=== PATIENT | male | born 1935 | race Caucasian/White ===

== ENCOUNTER 2020-04-06 08:27 | Emergency (ER) | payer MEDICARE, OTHER ==
[~2020-04-06 08:27] MED LIST: ADVAIR 250-501 EACH INH; ANUSOL HC SUPP1 SUPP PR; ASPIRIN CHEWABL81 MG PO; AVODART 0.5 MG0.5 MG PO; AZELASTINE137 MCG/0.; BUSPAR 10MG10 MG PO; CEFUROXIME500 MG PO; CLARITIN10 M2 PO; COZAAR 25MG TAB25 MG PO; DESYREL 50 MG T50 MG PO; ELIQUIS2.5 MG PO; FLOMAX 0.4 MG0.4 MG PO; FLONASE 0.05% N16 GM; GLUCOPHAGE 500500 MG PO; IPRATROPIU0.2 MG/1 M INH; LASIX TAB 20 MG20 MG PO; LEVALBUTER1.25 MG/3 NEB; LEVOFLOXACIN500 MG PO; LIPITOR TAB 2020 MG PO; LOPRESSOR 25 MG25 MG PO; MEGACE 400400 MG/10 PO; MELATONIN5 MG PO; METAMUCIL PACK3.4 GM PO; MIRALAX17 GM PO; PRILOSEC OTC20 MG PO; PROSCAR 5 MG TAB5 MG PO; SPIRIVA RESPIMAT4 GM INH; SYMBICORT 160-1 INHA INH; THERAGRAN M TAB1 EA PO; TOPROL XL25 MG PO; ZANTAC150 MG PO
[2020-04-06 10:10] LABS: HEMOGLOBIN 9.2 gm/dl (14.0-17.5); RED BLOOD COUNT 3.44 M/UL (4.20-5.50); WHITE BLOOD COUNT 7.7 K/UL (4.5-11.0)
[2020-04-06 10:35] LABS: BUN/CREATININE RATIO 40 (0-10)
== END 2020-04-06 14:34 | disposition home or self-care (01) ==
LOC: ER1 08:27
PROVIDERS: Student in an Organized Health Care Education/Training Program
DX: R04.2 Hemoptysis (principal); I50.9 Heart failure, unspecified; J44.9 Chronic obstructive pulmonary disease, unspecified; Z20.822 Contact with and (suspected) exposure to COVID-19; E11.9 Type 2 diabetes mellitus without complications; Z85.118 Personal history of other malignant neoplasm of bronchus and lung; Z79.899 Other long term (current) drug therapy
CPT/HCPCS: 0240U; 36415; 36600; 71045; 80053; 82550; 82553; 82803; 83874; 83880; 84484; 85025; 85610; 85730; 86850; 86900; 86901; 93005; 96374; 96375; 99285; J2930; J7030; Q9967

== ENCOUNTER 2020-05-19 09:23 | Inpatient (IN) | payer MEDICARE, OTHER ==
[~2020-05-19] VITALS: Ht 170.2 cm; Wt 56.8 kg
[2020-05-19 11:30] LABS: HEMOGLOBIN 8.7 gm/dl (14.0-17.5); RED BLOOD COUNT 3.32 M/UL (4.20-5.50); WHITE BLOOD COUNT 19.2 K/UL (4.5-11.0)
[2020-05-19 11:50] LABS: BUN/CREATININE RATIO 39 (0-10)
[2020-05-19] MEDS ORDERED: PROTONIX40 MG PO (13:09)
[2020-05-19] MEDS ORDERED: SYNTHROID50 MCG PO (20:19)
--- NOTE | 2020-05-19 20:45 | NUR ---
RECEIVED PATIENT FROM ER. RIGHT IJ SITE BLEEDING. REPORTED THAT PATIENT IS ON ELIQUIS . DRESSING APPLIED : ABD PAD ,2 PKS OF 4X4'S AND SECURED WITH ELASTICON ADHESIVE DRESSING.
[2020-05-20 05:28] LABS: HEMOGLOBIN 7.4 gm/dl (14.0-17.5); RED BLOOD COUNT 2.89 M/UL (4.20-5.50); WHITE BLOOD COUNT 15.5 K/UL (4.5-11.0)
--- NOTE | 2020-05-20 05:42 | NUR ---
DRESSING RIGHT IJ SITE SATURATED. OLD DRESSING REMOVED . SITE CONTINUES TO OOZE BLOOD . SITE WAS COVERED WITH D-STAT AND ABD PAD THEN SECURED WITH ELASTICON ADHESIVE TAPE.
[2020-05-20 05:51] LABS: BUN/CREATININE RATIO 36 (0-10)
[2020-05-21 05:27] LABS: HEMOGLOBIN 7.4 gm/dl (14.0-17.5); RED BLOOD COUNT 2.86 M/UL (4.20-5.50); WHITE BLOOD COUNT 13.2 K/UL (4.5-11.0)
[2020-05-21 05:58] LABS: BUN/CREATININE RATIO 40 (0-10)
--- NOTE | 2020-05-21 06:14 | NUR ---
CRITICAL POTASSIUM CALLED FROM LAB [facility] HAS ORDER FOR K 2.6-2.9. SEE MAR. K REPLACED PER ORDER.
[2020-05-22 01:32] LABS: HEMOGLOBIN 7.7 gm/dl (14.0-17.5); RED BLOOD COUNT 2.99 M/UL (4.20-5.50)
[2020-05-22 01:50] LABS: BUN/CREATININE RATIO 34 (0-10)
[2020-05-22 02:41] LABS: WHITE BLOOD COUNT 19.1 K/UL (4.5-11.0)
[2020-05-22 14:11] LABS: ORGANISM ID Not indicated. (.); SPECIMEN SOURCE Urine (.); STREPTOCOCCUS PNEUMONIAE AG Negative (Negative)
[2020-05-23 04:40] LABS: HEMOGLOBIN 7.3 gm/dl (14.0-17.5); RED BLOOD COUNT 2.87 M/UL (4.20-5.50)
[2020-05-23 04:43] LABS: WHITE BLOOD COUNT 10.4 K/UL (4.5-11.0)
[2020-05-23 05:12] LABS: BUN/CREATININE RATIO 38 (0-10)
[2020-05-24 04:51] LABS: HEMOGLOBIN 7.4 gm/dl (14.0-17.5); RED BLOOD COUNT 2.93 M/UL (4.20-5.50)
[2020-05-24 05:14] LABS: WHITE BLOOD COUNT 14.3 K/UL (4.5-11.0)
[2020-05-24 05:18] LABS: BUN/CREATININE RATIO 36 (0-10)
[2020-05-25 05:33] LABS: RED BLOOD COUNT 3.09 M/UL (4.20-5.50)
[2020-05-25 05:47] LABS: BUN/CREATININE RATIO 33 (0-10)
[2020-05-25 05:49] LABS: WHITE BLOOD COUNT 19.5 K/UL (4.5-11.0)
== END 2020-05-26 11:56 | disposition expired | DRG 871 ==
LOC: ER1 09:23 → CDU 12:39 → CCU 12:39
PROVIDERS: Emergency Medicine; Internal Medicine Infectious Disease; Internal Medicine Pulmonary Disease; Physician Assistant; ADMIT Internal Medicine
PROC: 3E033XZ Introduction of Vasopressor into Peripheral Vein, Percutaneous Approach (ICD-10-PCS; principal; 2020-05-19)
PROC: 0BH17EZ Insertion of Endotracheal Airway into Trachea, Via Natural or Artificial Opening (ICD-10-PCS; 2020-05-19)
PROC: 02HV33Z Insertion of Infusion Device into Superior Vena Cava, Percutaneous Approach (ICD-10-PCS; 2020-05-19)
PROC: 5A1945Z Respiratory Ventilation, 24-96 Consecutive Hours (ICD-10-PCS; 2020-05-19)
PROC: 5A09357 Assistance with Respiratory Ventilation, Less than 24 Consecutive Hours, Continuous Positive Airway Pressure (ICD-10-PCS; 2020-05-19)
PROC: 0B21XEZ Change Endotracheal Airway in Trachea, External Approach (ICD-10-PCS; 2020-05-19)
PROC: B24BZZZ Ultrasonography of Heart with Aorta (ICD-10-PCS; 2020-05-20)
DX: A41.52 Sepsis due to Pseudomonas (principal); R65.21 Severe sepsis with septic shock; J96.21 Acute and chronic respiratory failure with hypoxia; J96.22 Acute and chronic respiratory failure with hypercapnia; J15.1 Pneumonia due to Pseudomonas; G93.41 Metabolic encephalopathy; I50.32 Chronic diastolic (congestive) heart failure; J44.0 Chronic obstructive pulmonary disease with (acute) lower respiratory infection; J44.1 Chronic obstructive pulmonary disease with (acute) exacerbation; N12 Tubulo-interstitial nephritis, not specified as acute or chronic; D62 Acute posthemorrhagic anemia; Z51.5 Encounter for palliative care; Z66 Do not resuscitate; Z20.822 Contact with and (suspected) exposure to COVID-19; E11.9 Type 2 diabetes mellitus without complications; E03.9 Hypothyroidism, unspecified; N40.0 Benign prostatic hyperplasia without lower urinary tract symptoms; E87.6 Hypokalemia; E83.42 Hypomagnesemia; D63.8 Anemia in other chronic diseases classified elsewhere; I71.4 Abdominal aortic aneurysm, without rupture; I11.0 Hypertensive heart disease with heart failure; K21.9 Gastro-esophageal reflux disease without esophagitis; I48.0 Paroxysmal atrial fibrillation; E78.5 Hyperlipidemia, unspecified; E83.39 Other disorders of phosphorus metabolism; Z82.5 Family history of asthma and other chronic lower respiratory diseases; Z85.118 Personal history of other malignant neoplasm of bronchus and lung; Z98.890 Other specified postprocedural states; Z87.891 Personal history of nicotine dependence; Z82.49 Family history of ischemic heart disease and other diseases of the circulatory system; Z99.81 Dependence on supplemental oxygen; Z79.01 Long term (current) use of anticoagulants; Z79.899 Other long term (current) drug therapy
CPT/HCPCS: ECHO; 0240U; 31500; 36415; 36600; 71045; 71260; 80053; 80202; 82140; 82607; 82728; 82746; 82803; 82962; 83540; 83550; 83605; 83615; 83735; 83880; 84100; 84443; 84484; 85018; 85025; 85379; 85610; 85730; 86140; 87040; 87070; 87077; 87081; 87186; 87205; 87278; 87899; 93005; 93306; 94002; 94003; 94640; 94660; 94760; 96365; 99285; J0696; J1160; J1940; J2060; J2270; J2370; J2543; J2704; J2920; J2930; J3370; J3475; J7030; J7070; Q9967